=== PATIENT | male | born 1960 | race Two or more races ===

== ENCOUNTER 2020-10-08 05:01 | Emergency (ER) | payer SELFPAY ==
[~2020-10-08] VITALS: Ht 170.2 cm; Wt 90.9 kg
--- NOTE | 2020-10-08 05:29 | PHYS DOC ---
Adult General Chief Complaint Chief Complaint: ABDOMINAL PAIN HPI HPI Patient is a 59 year old male who denies any significant past or history presenting to emergency department for new onset of abdominal pain and hematuria. Patient states that he has had 3 episodes of hematuria over the last year stating that the most recent one before today was 1 week ago. States that he saw it this morning was concerned and decided to come to the emergency department. Patient also separately notes that he has been having some mild midepigastric abdominal pain without any associated nausea, vomit, fever, chills, chest pain or shortness of breath. States he has not taken any medication for this is not pain a physician or urologist (MARKY WEEMS MD) Review of Systems Review of Systems Constitutional: Denies fever or chills [] Eyes: Denies change in visual acuity, redness, or eye pain [] HENT: Denies nasal congestion or sore throat [] Respiratory: Denies cough or shortness of breath [] Cardiovascular: No additional information not addressed in HPI [] GI: Denies abdominal pain, nausea, vomiting, bloody stools or diarrhea [] : Denies dysuria or hematuria [] Musculoskeletal: Denies back pain or joint pain [] Integument: Denies rash or skin lesions [] Neurologic: Denies headache, focal weakness or sensory changes [] Endocrine: Denies polyuria or polydipsia [] All other systems were reviewed and found to be within normal limits, except as documented in this note. (MARKY WEEMS MD) Current Medications Current Medications Current Medications Medications (Trade) Dose Ordered Sig/Ruiz Start Time Stop Time Status Last Admin Dose Admin Famotidine (Pepcid) 20 mg 1X ONCE 10/08/20 05:30 10/08/20 05:31 DC 10/08/20 05:37 20 MG Sodium Chloride 1,000 ml @ 1,000 mls/hr 1X ONCE 10/08/20 07:00 10/08/20 07:59 (CANDY AVELAR DO) Allergies Allergies Allergies Coded Allergies Type Severity Reaction Last Updated Verified No Known Drug Allergies 10/08/20 No (CANDY AVELAR DO) Physical Exam Physical Exam Constitutional: Well developed, well nourished, no acute distress, non-toxic appearance. [] HENT: Normocephalic, atraumatic, bilateral external ears normal, oropharynx moist, no oral exudates, nose normal. [] Eyes: PERRLA, EOMI, conjunctiva normal, no discharge. [] Neck: Normal range of motion, no tenderness, supple, no stridor. [] Cardiovascular:Heart rate regular rhythm, no murmur [] Lungs & Thorax: Bilateral breath sounds clear to auscultation [] Abdomen: Bowel sounds normal, soft, no tenderness, no masses, no pulsatile masses. [] Skin: Warm, dry, no erythema, no rash. [] Back: No tenderness, no CVA tenderness. [] Extremities: No tenderness, no cyanosis, no clubbing, ROM intact, no edema. [] Neurologic: Alert and oriented X 3, normal motor function, normal sensory function, no focal deficits noted. [] Psychologic: Affect normal, judgement normal, mood normal. [] (MARKY WEEMS MD) Physical Exam Constitutional: Well developed, well nourished, non-toxic appearance HENT: Normocephalic, atraumatic Eyes: Conjunctiva normal, no discharge Neck: Normal range of motion, no tenderness, supple Lungs & Thorax: No respiratory distress, equal chest rise and fall Abdomen: Soft, suprapubic tenderness and fullness Skin: Warm, dry, no erythema, no rash Extremities: No tenderness, ROM intact, no edema Neurologic: Alert and oriented X 3, no focal deficits noted Psychologic: Affect normal, judgment normal (DAVID MODI DO) Current Patient Data Vital Signs Vital Signs Date Time Temp Pulse Resp B/P (MAP) Pulse Ox O2 Delivery O2 Flow Rate FiO2 10/08/20 05:03 98.6 105 20 139/89 (106) 98 Room Air 98.6 ([facility] DO) Lab Values Laboratory Tests Test 10/08/20 05:30 10/08/20 05:40 Urine Collection Type Unknown Urine Color Yellow Urine Clarity Clear Urine pH 7.0 (<5.0-8.0) Urine Specific [place] <=1.005 (1.000-1.030) Urine Protein Negative mg/dL (NEG-TRACE) Urine Glucose (UA) Negative mg/dL (NEG) Urine Ketones (Stick) Negative mg/dL (NEG) Urine Blood Large (NEG) Urine Nitrite Negative (NEG) Urine Bilirubin Negative (NEG) Urine Urobilinogen Dipstick 0.2 mg/dL (0.2 mg/dL) Urine Leukocyte Esterase Negative (NEG) Urine RBC 11-20 /HPF (0-2) Urine WBC 1-4 /HPF (0-4) Urine Bacteria 0 /HPF (0-FEW) Urine Opiates Screen Neg (NEG) Urine Methadone Screen Neg (NEG) Urine Barbiturates Neg (NEG) Urine Phencyclidine Screen Neg (NEG) Urine Amphetamine/Methamphetamine Neg (NEG) Urine Benzodiazepines Screen Neg (NEG) Urine Cocaine Screen Neg (NEG) Urine Cannabinoids Screen Neg (NEG) Urine Ethyl Alcohol Neg (NEG) ([facility]) EKG EKG [] (MARKY WEEMS MD) Radiology/Procedures Radiology/Procedures [] (MARKY WEEMS MD) Radiology/Procedures PROCEDURE: CT ABDOMEN PELVIS WO CONTRAST CT ABDOMEN+PELVIS WO INDICATION: hematuria eval for kidney stone or bladder tumor EXAM: Noncontrast CT of the abdomen and pelvis. Coronal and sagittal reformatted images were performed. PQRS compliance statement: One or more of the following individualized dose reduction techniques were utilized for this examination: 1. Automated exposure control 2. Adjustment of the mA and/or kV according to patient size 3. Use of iterative reconstruction technique COMPARISON: None FINDINGS: No free air, free fluid, or fluid collection. Lower chest: The visualized lower lungs are aerated. No pleural or pericardial effusion. ABDOMEN: Liver: The noncontrast liver is homogeneous in attenuation. Gallbladder and biliary: Normal gallbladder without radiopaque stone. Normal caliber bile ducts. Spleen: Normal spleen. Pancreas: The noncontrast pancreas is homogeneous in attenuation without peripancreatic inflammatory changes. Adrenal glands: Normal adrenal glands. Kidneys and ureters: Mild bilateral hydroureteronephrosis. No obstructive renal calculi. GI tract: The stomach is decompressed and poorly evaluated. Normal caliber small bowel and colon. Extensive colonic diverticulosis. Normal appendix. Vascular structures: Normal caliber abdominal aorta. Lymph nodes: No lymphadenopathy in the abdomen or pelvis. PELVIS: Genitourinary system: Urinary bladder is markedly distended. Enlarged prostate measures 5.6 cm transverse with invagination into the base of the bladder. SKELETAL STRUCTURES AND SOFT TISSUES: Degenerative changes of the spine. 9 mm anterolisthesis at L5-S1 due to bilateral L5 pars defects. Small fat-containing right inguinal hernia. IMPRESSION: 1. Prostatomegaly with invagination into the base of the bladder. Markedly distended bladder with mild bilateral hydroureteronephrosis. Consider obstructive uropathy. No opaque urinary calculi are seen. 2. Extensive colonic diverticulosis. Electronically signed by: Mika Guerrero MD (10/08/2020 7:48 AM) [id number] (DAVID MODI DO) Course & Med Decision Making Course & Med Decision Making Pertinent Labs and Imaging studies reviewed. (See chart for details) [] (MARKY WEEMS MD) Course & Med Decision Making I did not see or evaluate this patient, was incorrectly assigned (was not working this day/shift/location) (CANDY AVELAR DO) Course & Med Decision Making [id number]-signout received from Dr. Weems for patient with hematuria. UA with signs of microscopic hematuria. Patient seen and evaluated by myself. Labs obtained and posted to chart. BUN/Creat stable. CT abd/pelvis with sign of BPH with marked urinary retention. Gaspar cath placed with approximately 1500ml output. Patient reports interval improvement of symptoms. Down drain replaced with leg bag. Patient stable for discharge with outpatient follow-up with PCP/urology. Discussed findings and plan with patient, who acknowledges understanding and ag reement. (DAVID MODI DO) Dragon Disclaimer Dragon Disclaimer This electronic medical record was generated, in whole or in part, using a voice recognition dictation system. (MARKY WEEMS MD) Departure Departure Impression: Primary Impression: Urinary retention due to benign prostatic hyperplasia Disposition: 01 DC HOME SELF CARE/HOMELESS Condition: STABLE Patient Instructions: Benign Prostatic Hypertrophy, Urinary Retention, Acute, Male, [id number] Additional Instructions: Please follow up with urology MARKY WEEMS MD Oct 08, 2020 05:29 CANDY AVELAR DO Oct 08, 2020 06:58 DAVID MODI DO Oct 12, 2020 02:33
[2020-10-08] MEDS ORDERED: FAMOTIDINE 20 MG TABLET. PO ONE (05:30)
[2020-10-08 06:02] LABS: BILIRUBIN,URINE NEGATIVE (NEG); CLARITY,URINE CLEAR; COLOR,URINE YELLOW; NITRITE,URINE NEGATIVE (NEG); PROTEIN,URINE NEGATIVE (NEG-TRACE); UROBILINOGEN,URINE 0.2 mg/dL (0.2 mg/dL)
[2020-10-08 06:14] LABS: BARBITURATES NEG (NEG); BENZODIAZEPINES NEG (NEG); CANNABINOIDS NEG (NEG); COCAINE NEG (NEG); METHADONE NEG (NEG); OPIATES NEG (NEG); PHENCYCLIDINE NEG (NEG)
[2020-10-08 06:24] LABS: AMPHETAMINE/METHAMPHETAMINE NEG (NEG)
[2020-10-08 06:37] LABS: BACTERIA,URINE 0 /HPF (0-FEW)
[2020-10-08] MEDS ORDERED: IV NORMAL SALINE 1000ML BAG 1,000 ML IV ONE (07:00)
[2020-10-08 07:27] LABS: BASO % 1 % (0-3); EOS % 0 % (0-3); HEMATOCRIT 42.3 % (39.0-53.0); HEMOGLOBIN 14.5 g/dL (13.0-17.5); LYMPH % 24 % (24-48); MEAN CORPUSCULAR HEMOGLOBIN 31 pg (25-35); MEAN CORPUSCULAR HGB CONC 34 g/dL (31-37); MEAN CORPUSCULAR VOLUME 89 fL (79-100); MONO # 0.6 x10^3/uL (0.0-1.1); MONO % 7 % (0-9); NEUT # 5.8 x10^3/uL (1.8-7.7); NEUT % 68 % (31-73); PLATELET COUNT 306 x10^3/uL (140-400); RED BLOOD COUNT 4.77 x10^6/uL (4.30-5.70); RED CELL DISTRIBUTION WIDTH 13.1 % (11.5-14.5); WHITE BLOOD COUNT 8.5 x10^3/uL (4.0-11.0)
[2020-10-08] MEDS ORDERED: KETOROLAC 15 MG/ML VIAL. IVP ONE (07:30)
[2020-10-08 07:38] LABS: CALCIUM 9.1 mg/dL (8.5-10.1); CREATININE 0.9 mg/dL (0.7-1.3); POTASSIUM 3.7 mmol/L (3.5-5.1)
[2020-10-08 07:43] LABS: ALBUMIN 3.8 g/dL (3.4-5.0); ALBUMIN/GLOBULIN RATIO 0.8 (1.0-1.7); MAGNESIUM 1.7 mg/dL (1.8-2.4); TOTAL BILIRUBIN 0.5 mg/dL (0.2-1.0); TOTAL PROTEIN 8.3 g/dL (6.4-8.2)
--- NOTE | 2020-10-08 07:50 | RAD ---
CT ABDOMEN+PELVIS WO INDICATION: hematuria eval for kidney stone or bladder tumor EXAM: Noncontrast CT of the abdomen and pelvis. Coronal and sagittal reformatted images were perform ed. PQRS compliance statement: One or more of the following individualized dose reduction techniques were utilized for this examinat ion: 1. Automated exposure control 2. Adjustment of the mA and/or kV according to patient size 3. Use of iterative reconstruction technique COMPARISON: None FINDINGS: No free air, free fluid, or fluid collection. Lower chest: The visualized lower lungs are aerated. No pleural or pericardial effusion. ABDOMEN: Liver: The noncontrast liver is homogeneous in attenuation. Gallbladder and biliary: Normal gallbladder without radiopaque stone. Normal caliber bile ducts. Spleen: Normal spleen. Pancreas: The noncontrast pancreas is homogeneous in attenuation without peripancreatic inflammatory changes. Adrenal glands: Normal adrenal glands. Kidneys and ureters: Mild bilateral hydroureteronephrosis. No obstructive renal calculi. GI tract: The stomach is decompressed and poorly evaluated. Normal caliber small bowel and colon. Ext ensive colonic diverticulosis. Normal appendix. Vascular structures: Normal caliber abdominal aorta. Lymph nodes: No lymphadenopathy in the abdomen or pelvis. PELVIS: Genitourinary system: Urinary bladder is markedly distended. Enlarged prostate measures 5.6 cm transv erse with invagination into the base of the bladder. SKELETAL STRUCTURES AND SOFT TISSUES: Degenerative changes of the spine. 9 mm anterolisthesis at L5-S 1 due to bilateral L5 pars defects. Small fat-containing right inguinal hernia. IMPRESSION: 1. Prostatomegaly with invagination into the base of the bladder. Markedly distended bladder with mil d bilateral hydroureteronephrosis. Consider obstructive uropathy. No opaque urinary calculi are seen. 2. Extensive colonic diverticulosis. Electronically signed by: Mika Guerrero MD (10/08/2020 7:48 AM) [id number]
[2020-10-08 09:05] VITALS: BP 149/82
== END 2020-10-08 10:00 | disposition home or self-care (01) ==
LOC: ER 05:01
DX: R10.13 Epigastric pain (principal); R31.9 Hematuria, unspecified
CPT/HCPCS: 36415; 74176; 80053; 80307; 81001; 83735; 85025; 96361; 96374; 99285; J1885; J7030